=== PATIENT | male | born 1970 | race Caucasian/White ===

== ENCOUNTER 2018-09-22 01:15 | Emergency (ER) | payer MEDICARE, OTHER ==
[2018-09-22] MEDS ORDERED: ONDANSETRON 4 MG TAB.RAPDIS PO ONE (01:27)
[2018-09-22] MEDS ORDERED: NORMAL SALINE 1000 ML 1,000 ML IV ONE ×3 (01:28→06:36)
--- NOTE | 2018-09-22 01:31 | ER Document Report ---
Addendum entered and electronically signed by JOE ERVIN PA 09/22/18 02:51: Course - Re-evaluation Re-evalutation: 09/22/18 02:49 Patient was initially downgraded to a level 3 because his belly examination is benign, however patient is starting to get very bizarre, he is approaching people and telling them that he forgives them, he is talking about his conversation at home with the "voices in the house". Upgraded to level 2, patient will be placed in room. - Vital Signs Vital signs: Temp Pulse Resp BP Pulse Ox 98 F 109 H 26 H 123/80 98 09/22/18 01:18 09/22/18 01:18 09/22/18 01:18 09/22/18 01:18 09/22/18 01:18 Original Note: ED Medical Screen (RME) - General Chief Complaint: Abdominal Pain Stated Complaint: ABDOMINAL PAIN Time Seen by Provider: 09/22/18 01:26 Primary Care Provider: JUANIS,NO [Primary Care Provider] - Follow up as needed Notes: 48-year-old male with chief complaint of abdominal pain that is sharp and severe, started tonight, reports nausea. Denies flank pain. Has not vomited. Reports feeling like his abdomen is swollen. He states he had a hard bowel movement this morning, nonbloody. He denies any abdominal surgeries. Only for reported past medical history of COPD. TRAVEL OUTSIDE OF THE [place] IN LAST 30 DAYS: No Physical Exam - Vital signs Vitals: Temp Pulse Resp BP Pulse Ox 98 F 109 H 26 H 123/80 98 09/22/18 01:18 09/22/18 01:18 09/22/18 01:18 09/22/18 01:18 09/22/18 01:18 - Abdominal Tenderness: Other - There is mild distention, there is no guarding or rigidity, no specific areas of tenderness, mild generalized tenderness Course - Re-evaluation Re-evalutation: Patient is anxious but does not appear to be in distress on my evaluation. When I asked him to tell me where his abdomen hurts the worst, he states he is not sure, he states he needs to "think about". His abdomen does appear mildly distended although it is not rigid. I do not appreciate any areas of significant tenderness or guarding. 09/22/18 01:30 I noticed patient began to appear much more uncomfortable, CAT scan will be performed. - Vital Signs Vital signs: Temp Pulse Resp BP Pulse Ox 98 F 109 H 26 H 123/80 98 09/22/18 01:18 09/22/18 01:18 09/22/18 01:18 09/22/18 01:18 09/22/18 01:18 Doctor's Discharge - Discharge Referrals: LOCALMD,NO [Primary Care Provider] - Follow up as needed
[2018-09-22 03:19] LABS: ABSOLUTE BASOPHILS # (AUTO) 0.2 10^3/uL (0.0-0.2); ABSOLUTE EOSINOPHILS # (AUTO) 0.1 10^3/uL (0.0-0.6); ABSOLUTE LYMPHOCYTES (AUTO) 2.9 10^3/uL (0.5-4.7); ABSOLUTE MONOCYTES (AUTO) 1.3 10^3/uL (0.1-1.4); ABSOLUTE NEUT (AUTO) 11.2 10^3/uL (1.7-8.2); EOSINOPHILS % (AUTO) 0.9 % (0-6); HEMATOCRIT 47.6 % (37.9-51.0); LYMPHOCYTES % (AUTO) 18.5 % (13-45); MEAN CORPUSCULAR HEMOGLOBIN 30.1 pg (27.0-33.4); MEAN CORPUSCULAR HGB CONC 35.7 g/dL (32.0-36.0); MEAN CORPUSCULAR VOLUME 84 fl (80-97); MONOCYTES % (AUTO) 8.4 % (3-13); PLATELET COUNT 457 10^3/uL (150-450); RED BLOOD COUNT 5.66 10^6/uL (4.35-5.55); RED CELL DISTRIBUTION WIDTH 13.2 % (11.5-14.0); SEGMENTED NEUTROPHILS % (AUTO) 71.2 % (42-78); TOTAL CELLS COUNTED % (AUTO) 100 %; WHITE BLOOD COUNT 15.7 10^3/uL (4.0-10.5)
[2018-09-22 03:36] LABS: ALANINE AMINOTRANSFERASE 36 U/L (21-72); ALBUMIN 5.3 g/dL (3.5-5.0); ALKALINE PHOSPHATASE 167 U/L (38-126); ANION GAP 16 (5-19); ASPARTATE AMINO TRANSFERASE 41 U/L (17-59); BILIRUBIN,DIRECT 0.3 mg/dL (0.0-0.4); BILIRUBIN,TOTAL 1.1 mg/dL (0.2-1.3); BLOOD UREA NITROGEN 32 mg/dL (7-20); CALCIUM 10.8 mg/dL (8.4-10.2); CARBON DIOXIDE 19 mmol/L (22-30); CHLORIDE 95 mmol/L (98-107); GLUCOSE 173 mg/dL (75-110); LIPASE 220.3 U/L (23-300); POTASSIUM 5.2 mmol/L (3.6-5.0); SODIUM 129.5 mmol/L (137-145); TOTAL PROTEIN 9.6 g/dL (6.3-8.2)
[2018-09-22] MEDS ORDERED: DIPHENHYDRAMINE HCL 50 MG/ML VIAL IV ONE ×2 (04:05→09:18)
--- NOTE | 2018-09-22 04:39 | RADIOLOGY REPORT (SQ) ---
EXAM DESCRIPTION: CT ABDOMEN PELVIS WITH IV CONTRAST COMPLETED DATE/TME: 09/22/2018 01:27 CLINICAL HISTORY: 48 years Male, severe abd pain, abd swelling Comparison: None. Technique: IV contrast. Coronal and sagittal reformat. This exam was performed according to our departmental dose-optimization program, which includes automated exposure control, adjustment of the mA and/or kV according to patient size and/or use of iterative reconstruction technique. [facility]: Dose Right [facility]: CareDose [facility]: Dose Right [facility]: Teradose 4D [facility]: ScreenHits LIMITATIONS: Motion artifact. Findings: 3.3 cm diameter mild dilation of jejunal bowel with air-fluid levels. No ascites. No pneumoperitoneum. No bowel obstruction. Normal appendix. No gross evidence of gallbladder inflammation or hepatobiliary obstruction. No hydronephrosis or hydroureter. No renal/ureteral stone. No evidence of abdominal aortic aneurysm. Hepatic steatosis. Atherosclerotic vascular disease. Likely benign renal cyst(s), not definitively characterized. Inferior thorax, liver, gallbladder, pancreas, spleen, adrenals, renal system, gastrointestinal tract, pelvic organs, lymphatics, vasculature, and musculoskeleton appear otherwise unremarkable. IMPRESSION: 1. Jejunal ileus. 2. Hepatic steatosis.
[2018-09-22 05:49] LABS: APPEARANCE,URINE CLEAR; BILIRUBIN,URINE NEGATIVE (NEGATIVE); COLOR,URINE STRAW; GLUCOSE, URINE NEGATIVE (NEGATIVE); KETONES,URINE NEGATIVE (NEGATIVE); LEUKOCYTE ESTERASE,URINE NEGATIVE (NEGATIVE); NITRITE,URINE NEGATIVE (NEGATIVE); PROTEIN,URINE NEGATIVE (NEGATIVE); URINE SPECIFIC GRAVITY 1.026; UROBILINOGEN,URINE NEGATIVE mg/dL (<2.0)
[2018-09-22 06:04] LABS: URINE AMPHETAMINES SCREEN NEGATIVE; URINE BARBITURATES SCREEN NEGATIVE; URINE BENZODIAZEPINES SCREEN NEGATIVE; URINE COCAINE SCREEN NEGATIVE; URINE MARIJUANA (THC) SCREEN UNCONFIRMED POSITIVE; URINE METHADONE SCREEN NEGATIVE; URINE PHENCYCLIDINE SCREEN NEGATIVE
--- NOTE | 2018-09-22 06:49 | ER Document Report ---
Addendum entered and electronically signed by ROSLYN COFFMAN DO 09/22/18 15:21: Discharge - Discharge Clinical Impression: Dehydration, Marijuana abuse, continuous, Hypomania Abdominal pain Qualifiers: Abdominal location: generalized Qualified Code(s): R10.84 - Generalized abdominal pain Nausea & vomiting Qualifiers: Vomiting type: unspecified Vomiting Intractability: non-intractable Qualified Code(s): R11.2 - Nausea with vomiting, unspecified Leukocytosis Qualifiers: Leukocytosis type: unspecified Qualified Code(s): D72.829 - Elevated white blood cell count, unspecified Condition: Stable Disposition: HOME, SELF-CARE Instructions: Abdominal Pain ([facility]), Drug Effects ([facility]) Additional Instructions: We are starting you on some Haldol and Cogentin. This may help with your abdominal pain as well as some of your mental health symptoms. Follow-up appointment has been arranged. See the further instructions for outpatient follow-up. In the event that symptoms are getting worse over the next 24 hours then please return immediately for repeat evaluation. You have been evaluated by both medical and behavioral health providers while in the emergency department. you have been cleared from both acute medical sand psychiatric issues. Continued use of Cannabis may interfere with medication effectiveness as well as increase jose r/psychosis. You should take medications as prescribed and see an ongoing medication provider for maintenance. Bipolar Disorder Bipolar disorder is also called manic-depressive disorder. Depression alternates with brain hyperactivity called jose r. Each phase lasts from several days to a few weeks. We don't know exactly what causes bipolar disorder, but it's treatable. During the "manic phase," you may feel elated and energetic. You may have racing thoughts, rapid speech, increased activity, and grandiose ideas. During this time, you may not realize how poor your judgement is. Inappropriate spending, drug abuse, excessive alcohol use, marriage problems, and irresponsible sexual behavior are common during the manic phase. During the "depressive phase," you might feel depressed, guilty, worthless, fatigued, and unable to concentrate. You might have thoughts of suicide. Good treatments are available for bipolar disorder. [place] is a classic drug for bipolar disorder, and is still often useful. If the manic phase is very mild, an antidepressant alone can be prescribed. If the manic phase is very severe, an antipsychotic medicine (such as Haldol) may be needed. The treatment must be matched to your symptoms, so it's important to work closely with your psychiatric care provider. Contact your physician, the hospital emergency center, crisis line, or your counsellor if you are losing control or having self-destructive thoughts. Schizophrenia Schizophrenia is a chemical disorder that affects how the brain functions. The exact cause is unknown, but it tends to run in families. It is NOT caused by emotional trauma. Schizophrenia causes disordered thinking, including unusual beliefs and inability to "process" happenings around the patient. Patients with schizophrenia benefit greatly from medicine. These medicines are called antipsychotics. Never stop the medicine without the doctor's approval. Counselling may help the patient deal with his disease. Schizophrenics require a very ordered environment. Stresses and sudden changes may bring out symptoms. Drugs and alcohol abuse may become problems. Contact the counsellor or crisis line if there are thoughts of suicide or of harming others, or if you become aware of unusual thoughts or beliefs Typically when both Bipolar and Schizophrenia are diagnosed together it is known as Schizoaffective Disorder Bipolar Type or Bipolar with Psychotic Features. Follow up: You have an outpatient mental health follow up appointment at [facility] ([facility] [place]) on 09/28/18 at 0730. You have been provided scripts for medications (Haldol and Cogentin) to aid in mood stabilization and psychosis (common symptoms of Bipolar and Schizophrenia). If your symptoms persist or worsen please contact you physician utilize mobile crisis or return to the emergency department. Prescriptions: Benztropine Mesylate [Cogentin 1 mg Tablet] 1 mg PO DAILY 30 Days #30 tablet Haloperidol [Haldol 5 mg Tablet] 5 mg PO BID 30 Days #60 tablet Forms: Return to Work Referrals: [facility] [Provider Group] - 09/28/18 7:30 am [facility] [Outside] - Follow up as needed LOCALEMI LUCERO [NO LOCAL MD] - Follow up as needed Scribe Attestation: Addendum entered and electronically signed by ROSLYN COFFMAN DO 09/22/18 14:41: Course - Vital Signs Vital signs: Temp Pulse Resp BP Pulse Ox 98.4 F 109 H 24 H 130/85 H 94 09/22/18 08:09 09/22/18 01:18 09/22/18 13:00 09/22/18 13:00 09/22/18 13:00 - Laboratory Result Diagrams: 09/22/18 02:40 09/22/18 12:44 Laboratory results interpreted by me: 09/22/18 09/22/18 09/22/18 02:40 02:40 12:44 WBC 15.7 H RBC 5.66 H Plt Count 457 H Absolute Neutrophils 11.2 H Sodium 129.5 L 136.3 L Potassium 5.2 H 5.2 H Chloride 95 L Carbon Dioxide 19 L 21 L BUN 32 H 25 H Creatinine 1.37 H Est GFR (Non-Af Amer) 55 L Glucose 173 H 119 H Calcium 10.8 H Alkaline Phosphatase 167 H Total Protein 9.6 H Albumin 5.3 H - EKG Interpretation by Me EKG shows normal: Sinus rhythm, Picher, Intervals, QRS Complexes, ST-T Waves Original Note: Entered by BURKE ESCUDERO SCRIBE 09/22/18 0406 Acting as scribe for:DANII HELMS MD ED General - General Mode of Arrival: Ambulatory Information source: Patient TRAVEL OUTSIDE OF THE [place] IN LAST 30 DAYS: No <DANII HELMS - Last Filed: 09/22/18 06:52> <BEN MESSINA - Last Filed: 09/22/18 14:27> <ROSLYN COFFMAN - Last Filed: 09/22/18 14:40> - General Chief Complaint: Abdominal Pain Stated Complaint: ABDOMINAL PAIN Time Seen by Provider: 09/22/18 01:26 Primary Care Provider: [facility] [Provider Group] - 09/28/18 7:30 am [facility] [Outside] - Follow up as needed LOCAL,NO [NO LOCAL MD] - Follow up as needed Notes: Patient is a 48 year old male presents to the emergency department complaining of abdominal pain onset last night. Patient states he was laying in bed when he had a sudden onset of severe abdominal cramping. He states the pain freezes his body up and he further complains of nausea and dry heaving. (BURKE ESCUDERO) Patient is a 48 year old male presents to the emergency department complaining of abdominal pain onset last night. Patient states he was laying in bed when he had a sudden onset of severe abdominal cramping. He states the pain freezes his body up and he further complains of nausea and dry heaving. (DANII HELMS) - Related Data Allergies/Adverse Reactions: tramadol Allergy (Verified 09/22/18 08:33) Past Medical History - General Information source: Patient - Social History Smoking Status: Current Every Day Smoker Cigarette use (# per day): Yes - 1 PPD Chew tobacco use (# tins/day): No Smoking Education Provided: No Frequency of alcohol use: None Drug Abuse: Marijuana Family History: Reviewed & Not Pertinent <DANII HELMS - Last Filed: 09/22/18 06:52> Review of Systems - Review of Systems Constitutional: No symptoms reported EENT: No symptoms reported Cardiovascular: No symptoms reported Respiratory: No symptoms reported Gastrointestinal: See HPI, Abdominal pain Genitourinary: No symptoms reported Male Genitourinary: No symptoms reported Musculoskeletal: No symptoms reported <DANII HELMS - Last Filed: 09/22/18 06:52> Physical Exam <DANII HELMS - Last Filed: 09/22/18 06:52> - Vital signs Vitals: Temp Pulse Resp BP Pulse Ox 98 F 109 H 26 H 123/80 98 09/22/18 01:18 09/22/18 01:18 09/22/18 01:18 09/22/18 01:18 09/22/18 01:18 - Notes Notes: GENERAL: Alert, rapidly and frequently draws legs towards abdomen in a crunching position while grunting. Appears uncomfortable. HEAD: Normocephalic, atraumatic. EYES: Pupils equal, round, and reactive to light. Extraocular movements intact. ENT: Oral mucosa moist, tongue midline. NECK: Full range of motion. Supple. Trachea midline. LUNGS: Clear to auscultation bilaterally, no wheezes, rales, or rhonchi. No respiratory distress. HEART: Regular rate and rhythm. No murmurs, gallops, or rubs. ABDOMEN: Soft, non-tender. Non-distended.Bowel sounds present in all 4 quadrants. No guarding, rigidity, or rebound. EXTREMITIES: Moves all 4 extremities spontaneously. NEUROLOGICAL: Alert and oriented x3. Normal speech. PSYCH: Normal affect, normal mood. SKIN: Warm, dry, normal turgor. No rashes or lesions noted. (BURKE ESCUDERO) GENERAL: Alert, rapidly and frequently draws legs towards abdomen in a crunching position while grunting. Appears uncomfortable. HEAD: Normocephalic, atraumatic. EYES: Pupils equal, round, and reactive to light. Extraocular movements intact. ENT: Oral mucosa moist, tongue midline. NECK: Full range of motion. Supple. Trachea midline. LUNGS: Clear to auscultation bilaterally, no wheezes, rales, or rhonchi. No respiratory distress. HEART: Regular rate and rhythm. No murmurs, gallops, or rubs. ABDOMEN: Soft, non-tender. Non-distended.Bowel sounds present in all 4 quadrants. No guarding, rigidity, or rebound. EXTREMITIES: Moves all 4 extremities spontaneously. NEUROLOGICAL: Alert and oriented x3. Normal speech. PSYCH: Normal affect, normal mood. SKIN: Warm, dry, normal turgor. No rashes or lesions noted. (DANII HELMS) Course - Laboratory Result Diagrams: 09/22/18 02:40 09/22/18 02:40 - Diagnostic Test Radiology reviewed: Image reviewed, Reports reviewed - IV contrasted CT scan of the abdomen pelvis shows jejunal ileus without obstruction. - Transfer of Care Care transferred to following provider: Dr. Coffman <DANII HELMS - Last Filed: 09/22/18 06:52> - Laboratory Result Diagrams: 09/22/18 02:40 09/22/18 12:44 <BEN MESSINA - Last Filed: 09/22/18 14:27> - Laboratory Result Diagrams: 09/22/18 02:40 09/22/18 12:44 <ROSLYN COFFMAN - Last Filed: 09/22/18 14:40> - Re-evaluation Re-evalutation: 09/22/18 06:24 After the patient got the Benadryl IV, his symptoms subsided and he is now quite comfortable. His girlfriend did report to the nurse that she thinks she perhaps got a bad batch of marijuana. She states she smokes every day when he gets off work. (DANII HELMS) 09/22/18 12:18 I received patient at sign out from Dr. Finney. Patient has received multiple liters of fluid. I was asked to reevaluate patient after he received fluid. After patient had been resting for several hours with no complications nurses informed me that he was once again having spasms in his abdomen complaining of abdominal pain. At that time I made a decision to call medicine for admit. Medicine team wanted a surgical consult. I spoke with Dr. Sandoval who recommended I get a Gastrografin swallow. Patient has received that and the films appear to be fairly unremarkable. I have reconsulted medicine but they do not feel patient meets criteria for admission. Well prior to going to the radiology suite I medicated the patient with Benadryl and Haldol as well as some Cogentin. This seemed to alleviate patient's symptoms. I have repeated a basic metabolic profile just make sure that his labs are improving. We will continue to evaluate and follow. 09/22/18 13:27 Physical exam: Patient is alert, acute distress. HEENT: Pupils equal round react to light accommodation, extraocular muscles are intact, mucous membranes are moist. Heart: Regular rate and rhythm, no murmurs Lungs: lungs clear to auscultation bilaterally no wheezes or rhonchi Abdomen: Abdomen is soft, nontender, nondistended. When lightly touching on the abdomen patient makes a apparently voluntary jerk reaction to his abdomen. Patient was observed while sleeping and resting and had no abdominal symptoms. After waking patient up began to complain of abdominal symptoms again. Extremities: Equal strength upper lower extremities, no edema Neurology/psychiatry: Patient seems to have fairly clear train of thought. No active psychosis. No SI or HI. Laboratory 09/22/18 09/22/18 09/22/18 02:40 02:40 05:29 WBC 15.7 H RBC 5.66 H Hgb 17.0 Hct 47.6 MCV 84 MCH 30.1 MCHC 35.7 RDW 13.2 Plt Count 457 H Seg Neutrophils % 71.2 Lymphocytes % 18.5 Monocytes % 8.4 Eosinophils % 0.9 Basophils % 1.0 Absolute Neutrophils 11.2 H Absolute Lymphocytes 2.9 Absolute Monocytes 1.3 Absolute Eosinophils 0.1 Absolute Basophils 0.2 Sodium 129.5 L Potassium 5.2 H Chloride 95 L Carbon Dioxide 19 L Anion Gap 16 BUN 32 H Creatinine 1.37 H Est GFR ( Amer) > 60 Est GFR (Non-Af Amer) 55 L Glucose 173 H Calcium 10.8 H Total Bilirubin 1.1 Direct Bilirubin 0.3 Neonat Total Bilirubin Not Reportable Neonat Direct Bilirubin Not Reportable Neonat Indirect Bili Not Reportable AST 41 ALT 36 Alkaline Phosphatase 167 H Total Protein 9.6 H Albumin 5.3 H Lipase 220.3 Urine Color STRAW Urine Appearance CLEAR Urine pH 6.0 Ur Specific [place] 1.026 Urine Protein NEGATIVE Urine Glucose (UA) NEGATIVE Urine Ketones NEGATIVE Urine Blood NEGATIVE Urine Nitrite NEGATIVE Urine Bilirubin NEGATIVE Urine Urobilinogen NEGATIVE Ur Leukocyte Esterase NEGATIVE Urine WBC (Auto) 0 Urine Mucus (Auto) RARE Urine Ascorbic Acid NEGATIVE Urine Opiates Screen Urine Methadone Screen Ur Barbiturates Screen Ur Phencyclidine Scrn Ur Amphetamines Screen U Benzodiazepines Scrn Urine Cocaine Screen U Marijuana (THC) Screen 09/22/18 09/22/18 05:29 12:44 WBC RBC Hgb Hct MCV MCH MCHC RDW Plt Count Seg Neutrophils % Lymphocytes % Monocytes % Eosinophils % Basophils % Absolute Neutrophils Absolute Lymphocytes Absolute Monocytes Absolute Eosinophils Absolute Basophils Sodium 136.3 L Potassium 5.2 H Chloride 106 Carbon Dioxide 21 L Anion Gap 9 BUN 25 H Creatinine 1.17 Est GFR ( Amer) > 60 Est GFR (Non-Af Amer) > 60 Glucose 119 H Calcium 9.9 Total Bilirubin Direct Bilirubin Neonat Total Bilirubin Neonat Direct Bilirubin Neonat Indirect Bili AST ALT Alkaline Phosphatase Total Protein Albumin Lipase Urine Color Urine Appearance Urine pH Ur Specific [place] Urine Protein Urine Glucose (UA) Urine Ketones Urine Blood Urine Nitrite Urine Bilirubin Urine Urobilinogen Ur Leukocyte Esterase Urine WBC (Auto) Urine Mucus (Auto) Urine Ascorbic Acid Urine Opiates Screen NEGATIVE Urine Methadone Screen NEGATIVE Ur Barbiturates Screen NEGATIVE Ur Phencyclidine Scrn NEGATIVE Ur Amphetamines Screen NEGATIVE U Benzodiazepines Scrn NEGATIVE Urine Cocaine Screen NEGATIVE U Marijuana (THC) Screen UNCONFIRMED POSITIVE Abdomen/Pelvis CT 09/22/18 01:27 IMPRESSION: 1. Jejunal ileus. 2. Hepatic steatosis. Small Bowel X-Ray 09/22/18 09:27 IMPRESSION: No evidence of small bowel obstruction. Contrast reached the colon within 1 hour. Assessment/plan: Mental health has seen. They are recommending some Haldol and Cogentin at this time. I think that is a good idea as it did also help with some of his abdominal symptoms however his abdominal symptoms may be more mental health in origin. The upper GI series appears unremarkable. Family members are here. Patient's brother reports that he has had schizoaffective disorder with manic episodes in the past. At this time based on the reported abnormal presentation in the ER and his abnormal involuntary type exam as well as the fact that his symptoms improved greatly with an antipsychotic medication I am recommending that patient be evaluated by mental health. I have ordered a repeat chemistry after he is received his fluids. This is pending at this time. Mental health evaluation pending at this time. I think that if patient's mental health evaluation is unremarkable he can likely be able to be discharged. Of note, the repeat chemistry was performed. Creatinine has improved and sodium is come up. Potassium is still 5.2. Ordering EKG at this time. 09/22/18 13:34 09/22/18 13:40 09/22/18 14:16 (ROSLYN COFFMAN) - Vital Signs Vital signs: Temp Pulse Resp BP Pulse Ox 98.4 F 109 H 24 H 130/85 H 94 09/22/18 08:09 09/22/18 01:18 09/22/18 13:00 09/22/18 13:00 09/22/18 13:00 - Laboratory Laboratory results interpreted by me: 09/22/18 09/22/18 09/22/18 02:40 02:40 12:44 WBC 15.7 H RBC 5.66 H Plt Count 457 H Absolute Neutrophils 11.2 H Sodium 129.5 L 136.3 L Potassium 5.2 H 5.2 H Chloride 95 L Carbon Dioxide 19 L 21 L BUN 32 H 25 H Creatinine 1.37 H Est GFR (Non-Af Amer) 55 L Glucose 173 H 119 H Calcium 10.8 H Alkaline Phosphatase 167 H Total Protein 9.6 H Albumin 5.3 H - Transfer of Care Notes: 09/22/18 06:35 Patient to receive a 3rd L of normal saline. If he is able to tolerate small sips of cool clear liquids, then he can probably go home. (DANII HELMS) Discharge <DANII HELMS - Last Filed: 09/22/18 06:52> <BEN MESSINA - Last Filed: 09/22/18 14:27> <ROSLYN COFFMAN - Last Filed: 09/22/18 14:40> - Discharge Clinical Impression: Dehydration, Marijuana abuse, continuous, Hypomania Abdominal pain Qualifiers: Abdominal location: generalized Qualified Code(s): R10.84 - Generalized abdominal pain Nausea & vomiting Qualifiers: Vomiting type: unspecified Vomiting Intractability: non-intractable Qualified Code(s): R11.2 - Nausea with vomiting, unspecified Leukocytosis Qualifiers: Leukocytosis type: unspecified Qualified Code(s): D72.829 - Elevated white blood cell count, unspecified Condition: Stable Disposition: HOME, SELF-CARE Instructions: Abdominal Pain ([facility]), Drug Effects ([facility]) Additional Instructions: We are starting you on some Haldol and Cogentin. This may help with your abdominal pain as well as some of your mental health symptoms. Follow-up appoi ntment has been arranged. See the further instructions for outpatient follow- up. In the event that symptoms are getting worse over the next 24 hours then please return immediately for repeat evaluation. You have been evaluated by both medical and behavioral health providers while in the emergency department. you have been cleared from both acute medical sand psychiatric issues. Continued use of Cannabis may interfere with medication effectiveness as well as increase jose r/psychosis. You should take medications as prescribed and see an ongoing medication provider for maintenance. Bipolar Disorder Bipolar disorder is also called manic-depressive disorder. Depression alternates with brain hyperactivity called jose r. Each phase lasts from several days to a few weeks. We don't know exactly what causes bipolar disorder, but it's treatable. During the "manic phase," you may feel elated and energetic. You may have racing thoughts, rapid speech, increased activity, and grandiose ideas. During this time, you may not realize how poor your judgement is. Inappropriate spending, drug abuse, excessive alcohol use, marriage problems, and irresponsible sexual behavior are common during the manic phase. During the "depressive phase," you might feel depressed, guilty, worthless, fatigued, and unable to concentrate. You might have thoughts of suicide. Good treatments are available for bipolar disorder. [place] is a classic drug for bipolar disorder, and is still often useful. If the manic phase is very mild, an antidepressant alone can be prescribed. If the manic phase is very severe, an antipsychotic medicine (such as Haldol) may be needed. The treatment must be matched to your symptoms, so it's important to work closely with your psychiatric care provider. Contact your physician, the hospital emergency center, crisis line, or your counsellor if you are losing control or having self-destructive thoughts. Schizophrenia Schizophrenia is a chemical disorder that affects how the brain functions. The exact cause is unknown, but it tends to run in families. It is NOT caused by emotional trauma. Schizophrenia causes disordered thinking, including unusual beliefs and inability to "process" happenings around the patient. Patients with schizophrenia benefit greatly from medicine. These medicines are called antipsychotics. Never stop the medicine without the doctor's approval. Counselling may help the patient deal with his disease. Schizophrenics require a very ordered environment. Stresses and sudden changes may bring out symptoms. Drugs and alcohol abuse may become problems. Contact the counsellor or crisis line if there are thoughts of suicide or of harming others, or if you become aware of unusual thoughts or beliefs Typically when both Bipolar and Schizophrenia are diagnosed together it is known as Schizoaffective Disorder Bipolar Type or Bipolar with Psychotic Features. Follow up: You have an outpatient mental health follow up appointment at [facility] ([facility] [place]) on 09/28/18 at 0730. You have been provided scripts for medications (Haldol and Cogentin) to aid in mood stabilization and psychosis (common symptoms of Bipolar and Schizophrenia). If your symptoms persist or worsen please contact you physician utilize mobile crisis or return to the emergency department. Prescriptions: Benztropine Mesylate [Cogentin 1 mg Tablet] 1 mg PO DAILY 30 Days #30 tablet Haloperidol [Haldol 5 mg Tablet] 5 mg PO BID 30 Days #60 tablet Referrals: JUANIS,NO [NO LOCAL MD] - Follow up as needed [facility] [Outside] - Follow up as needed [facility] [Provider Group] - 09/28/18 7:30 am Scribe Attestation: 09/22/18 04:19 I personally performed the services described in the documentation, reviewed and edited the documentation which was dictated to the scribe in my presence, and it accurately records my words and actions. (DANII HELMS) I personally performed the services described in the documentation, reviewed and edited the documentation which was dictated to the scribe in my presence, and it accurately records my words and actions.
[2018-09-22] MEDS ORDERED: BENZTROPINE MESYLATE 1 MG TABLET PO ONE (09:18)
[2018-09-22] MEDS ORDERED: HALOPERIDOL LACTATE INJ 5 MG/1 ML VIAL IV ONE (09:18)
[2018-09-22 13:25] LABS: ANION GAP 9 (5-19); BLOOD UREA NITROGEN 25 mg/dL (7-20); CALCIUM 9.9 mg/dL (8.4-10.2); CARBON DIOXIDE 21 mmol/L (22-30); CHLORIDE 106 mmol/L (98-107); GLUCOSE 119 mg/dL (75-110); POTASSIUM 5.2 mmol/L (3.6-5.0); SODIUM 136.3 mmol/L (137-145)
--- NOTE | 2018-09-22 13:29 | RADIOLOGY REPORT (SQ) ---
EXAM DESCRIPTION: SMALL BOWEL SERIES COMPLETED DATE/TIME: 09/22/2018 12:42 pm REASON FOR STUDY: ? SBo USE GASTROGRAFIN COMPARISON: None. FLUOROSCOPY TIME: 0 12 images saved to PACS. LIMITATIONS: None. PROCEDURE: Initial interventional physiatrist image of abdomen acquired, followed by administration of oral contrast. Se rial radiographic images acquired. Fluoroscopic images recorded of the terminal ileum and other ayse cated areas. All images stored on PACS. FINDINGS: DRY ICE MAKER KUB: There are few mildly dilated loops of small bowel in the central abdomen measur ing up to 4 cm. Gas noted throughout the colon. No radiopaque calcifications overlie kidneys or exp ected course of ureters. Unremarkable bones. STOMACH: No significant reflux. Normal distention without abnormality. DUODENUM: Normal mucosal pattern with adequate distention. No displacement or obstruction. JEJUNUM: Normal mucosal pattern. No dilatation, segmentation, strictures or masses. ILEUM: Normal mucosal pattern. No dilatation, segmentation, strictures or masses. TERMINAL ILEUM AND ILEO-CECAL VALVE: Normal mucosal pattern without "cobble-stoning" or stricture. PROXIMAL COLON: Contrast reached the colon prior to 1 hour. Incompletely imaged. No abnormality. OTHER: No other significant finding. IMPRESSION: No evidence of small bowel obstruction. Contrast reached the colon within 1 hour. COMMENT: Quality ID [id number]: Final reports for procedures using fluoroscopy that document radiation exp osure indices, or exposure time and number of fluorographic images (if radiation exposure indices are not available) TECHNICAL DOCUMENTATION: JOB ID: [id number] [employer]- All Rights Reserved Reading location - IP/workstation name: [email or web address]
--- NOTE | 2018-09-22 14:11 | PSYCHOLOGICAL NOTE ---
Psych Note - Psych Note Date seen by psych provider: 09/22/18 Time seen by psych provider: 13:30 - Evaluation from [id number]. 2 followups after initial probably 5 minutes each. Psych Note: Reason for Consult: [place] (lots of energy, pressured speech), Hx MH, not on medications Contact Permissions: Brother Clarence and Mother at bedside Patient is a 48 year old male who presented to the ED today for medical compliant of abdominal pain and was dehydrated. A psychiatric consult was ordered due to manic presentation and report from family/coworkers with history of MH and not currently on medications. Attending ED Physician noted administration of Haldol 5MG, Cogentin 2MG and Benadryl 50MG stopped the pressured speech. Patient acknowledged he "was diagnosed with Bipolar and Schizophrenia, he used to me on medications but it has been a long time, over 10 years." He noted he had been prescribed Risperdal, commented "I didn't like it because it could make you grow breasts, it did not happen to me and I did not have any bad feeling from it" and said "others as well but I don't remember what they were." He admitted to previous MH hospitalizations and said "a long time ago." He stated "I was on disability for 5 years but then the [facility] decided I didn't need it anymore." He denied being involved with the [facility] until recently when he scheduled an appointment (12/03/18) due to needing hip and shoulder checked out. He stated Dr. Kennedy at the physician's office next to [facility] is his PCM. He denied SI/HI. He denied alcohol and drug use. UDS was positive for Cannabis. he admitted to a family history of MH. Patient was alert and oriented to self, person, place, time and situation. Mood was euthymic with congruent affect. He presented hypomanic but cooperative and able to interact appropriately. He denied SI/HI. He did not appear to be responding to internal stimuli as evidenced by fair eye contact, answering questions appropriately when addressed, staying on topic and carrying on dialogue conversation. Thought processes were linear. Conversational speech was quick in rate and within normal limits for tone and prosody. Intellectual abilities are estimated to be average. Insight, judgment and impulse control were fair as evidenced by providing history of MH and being honest about history of treatment. Patient's brother reported his mother spoke to patient girlfriend who said patient "was out there, not making sense and talking weird." He stated the [place] patient works with daily went to their boss the other day saying "patient was talking to himself, talking out there and not acting/talking right." He stated "it was like he was when he first got her and medical staff said he was talking often, fast and to himself." He also confirmed a family history of MH. Mother stated patient has a brother who was on Haldol and committed suicide. Brother noted brother had also been using other substances such as LSD and multiple other things. Diagnosis: 295.70 (F25.0) Schizoaffective Disorder, Bipolar Type by History per patient 292.9 (F12.99) Unspecified Cannabis Related Disorder Medication recommendations made by the psychiatric medical provider, Dr. Starr MD., includes: Add Haldol 5MG twice a day for psychosis/mood stabilization Add Cogentin 1MG daily to curb tremor side effects often associated with antipsychotic medications Impression/Plan: Patient is cleared from acute psychiatric services. He denied SI/HI and no observed psychosis that seemed to interfere with ability to interact with others or express needs/wants. He admitted to a Bipolar and Schizophrenia history, being on Risperdal in the past, not being on any medications for 10 years, was on Disability for [place] for 5 years then [facility] stopped it and has been hospitalized for MH in the past. Outpatient follow up scheduled with the [facility] on 09/28/18 at 0730. Patient and family provided with outpatient resource sheet which documented appointment date and time, as well as highlighted [facility] for crisis/talk therapy/linkage to other supports/services. Patient and mother educated on how [facility] works (patient for talk therapy via telephone, mother for concerns regarding behaviors and presentation). Bother and mother included in plan of care. Consulted with Dr. Jean regarding the management and care of patient. ED Physician in agreement with recommendations.
[2018-09-22 15:31] VITALS: BP 136/80
--- NOTE | 2018-09-23 11:08 | EKG REPORT ---
SEVERITY:- BORDERLINE ECG - SINUS RHYTHM BORDERLINE T ABNORMALITIES, INFERIOR LEADS : Confirmed by: Cony Araujo 23-Sep-2018 11:07:37
== END 2018-09-22 15:31 | disposition home or self-care (01) ==
LOC: ER 01:15
DX: K56.7 Ileus, unspecified (principal); K76.0 Fatty (change of) liver, not elsewhere classified; R10.84 Generalized abdominal pain; R11.2 Nausea with vomiting, unspecified; E86.0 Dehydration; F25.0 Schizoaffective disorder, bipolar type; F12.10 Cannabis abuse, uncomplicated; D72.829 Elevated white blood cell count, unspecified; F17.210 Nicotine dependence, cigarettes, uncomplicated
CPT/HCPCS: 93005; 96376; 99285; 96361; 96374; 96375; 36415; 83690; 85025; 80048; 80053; 81001; 80307; 74250; 74177; 93010; J1200; J1630; J7030

== ENCOUNTER → 2018-10-27 | Outpatient (CLI) | payer OTHER ==
[2018-10-31 19:08] LABS: HELICOBACTER PYLORI IGA AB <9.0 units (0.0-8.9); HELICOBACTER PYLORI IGG AB <0.80 (0.00-0.79); HELICOBACTER PYLORI IGM AB <9.0 units (0.0-8.9)
== END ==
LOC: OD 09:39
PROVIDERS: ATTEND Surgery
DX: R10.9 Unspecified abdominal pain (principal)
CPT/HCPCS: 36415; 86677

== ENCOUNTER 2020-05-23 09:53 | Emergency (ER) | payer OTHER ==
--- NOTE | 2020-05-23 10:12 | ER Document Report ---
ED Medical Screen (RME) - General Chief Complaint: Chest Pain Stated Complaint: CHEST PAIN Time Seen by Provider: 05/23/20 10:07 Primary Care Provider: CHARLES JENKINS MD [Primary Care Provider] - Follow up as needed Mode of Arrival: Ambulatory Information source: Patient Notes: 49-year-old male presented to ED for complaint of chest pain last night. He states his daughter wrote a letter to the [place] doctor last night and they called him this morning told him to come right to the ER. He was having some pain in his left upper chest. He does have a history of high blood pressure high cholesterol and COPD. He states he does smoke a pack a day does not drink or do drugs. He is alert and oriented. He states he does not have any pain at this time. He states he always has shortness of breath due to COPD. After performing a Medical Screening Examination, I spoke with the patient at length in regards to leaving the hospital against medical advice. I do not believe the patient should leave but the patient is alert oriented x4, understands the risks and benefits of staying and leaving including disability and . Pt understands that he can return at any time for further care and is more than welcome to do so. Pt verbalizes this understanding. TRAVEL OUTSIDE OF THE [place] IN LAST 30 DAYS: No - Related Data Allergies/Adverse Reactions: tramadol Allergy (Verified 09/22/18 08:33) Past Medical History - Past Medical History Cardiac Medical History: Reports: Hx Hypercholesterolemia, Hx Hypertension Pulmonary Medical History: Reports: Hx Asthma, Hx COPD Renal/ Medical History: Denies: Hx Peritoneal Dialysis Physical Exam - Vital signs Vitals: Temp Pulse Resp BP Pulse Ox 98.5 F 77 18 128/81 H 97 05/23/20 10:06 05/23/20 10:06 05/23/20 10:06 05/23/20 10:06 05/23/20 10:06 Course - Vital Signs Vital signs: Temp Pulse Resp BP Pulse Ox 98.5 F 77 18 128/81 H 97 05/23/20 10:06 05/23/20 10:06 05/23/20 10:06 05/23/20 10:06 05/23/20 10:06 Doctor's Discharge - Discharge Referrals: CHARLES JENKINS MD [Primary Care Provider] - Follow up as needed
[2020-05-23 10:46] LABS: ABSOLUTE BASOPHILS # (AUTO) 0.1 10^3/uL (0.0-0.2); ABSOLUTE EOSINOPHILS # (AUTO) 0.1 10^3/uL (0.0-0.6); ABSOLUTE MONOCYTES (AUTO) 0.5 10^3/uL (0.1-1.4); ABSOLUTE NEUT (AUTO) 7.1 10^3/uL (1.7-8.2); BASOPHILS % (AUTO) 0.8 % (0-2); EOSINOPHILS % (AUTO) 0.9 % (0-6); HEMATOCRIT 46.2 % (37.9-51.0); HEMOGLOBIN 15.9 g/dL (13.5-17.0); LYMPHOCYTES % (AUTO) 27.9 % (13-45); MEAN CORPUSCULAR HEMOGLOBIN 30.2 pg (27.0-33.4); MEAN CORPUSCULAR HGB CONC 34.4 g/dL (32.0-36.0); MEAN CORPUSCULAR VOLUME 88 fl (80-97); PLATELET COUNT 330 10^3/uL (150-450); RED BLOOD COUNT 5.26 10^6/uL (4.35-5.55); RED CELL DISTRIBUTION WIDTH 13.3 % (11.5-14.0); SEGMENTED NEUTROPHILS % (AUTO) 65.4 % (42-78); TOTAL CELLS COUNTED % (AUTO) 100 %; WHITE BLOOD COUNT 10.9 10^3/uL (4.0-10.5)
[2020-05-23 10:52] LABS: INTERNATIONAL RATION (INR) 0.89; PROTHROMBIN TIME 12.3 SEC (11.4-15.4)
--- NOTE | 2020-05-23 11:04 | ER Document Report ---
ED General - General Chief Complaint: Chest Pain Stated Complaint: CHEST PAIN Time Seen by Provider: 05/23/20 10:07 Primary Care Provider: EAGLE VERDUGO MD [ACTIVE PROVISIONAL STAFF] - Follow up as needed CHARLES JENKINS MD [ACTIVE STAFF] - Follow up tomorrow Mode of Arrival: Ambulatory TRAVEL OUTSIDE OF THE [place] IN LAST 30 DAYS: No - HPI Notes: Patient is a 49-year-old male with a history of COPD who presents with intermittent chest pain for the past month. Patient describes that pain as a squeezing in his left chest that comes on at rest and lasts a couple of hours. Patient states recently the frequency of his chest pain has increased and he now reports episodes of chest pain daily. He states he is normally SOB due to his COPD but denies any new shortness of breath. He reports one episode of vomiting and diarrhea this morning but denies abdominal pain, headache, fever, and dizziness. He is a current everyday smoker and smokes 1ppd. He denies alcohol use. He reports hx of HLD and pre-diabetes which he takes metformin for but denies hx of HTN. - Related Data Allergies/Adverse Reactions: tramadol Allergy (Verified 09/22/18 08:33) Home Medications: metformin Past Medical History - General Information source: Patient - Social History Smoking Status: Current Every Day Smoker Frequency of alcohol use: None Family History: Reviewed & Not Pertinent Patient has homicidal ideation: No - Past Medical History Cardiac Medical History: Reports: Hx Hypercholesterolemia, Hx Hypertension Pulmonary Medical History: Reports: Hx Asthma, Hx COPD Renal/ Medical History: Denies: Hx Peritoneal Dialysis Review of Systems - Review of Systems Constitutional: No symptoms reported EENT: No symptoms reported Cardiovascular: See HPI Respiratory: No symptoms reported Gastrointestinal: See HPI Genitourinary: No symptoms reported Male Genitourinary: No symptoms reported Musculoskeletal: No symptoms reported Skin: No symptoms reported Hematologic/Lymphatic: No symptoms reported Neurological/Psychological: No symptoms reported Physical Exam - Vital signs Vitals: Temp Pulse Resp BP Pulse Ox 98.5 F 77 18 128/81 H 97 05/23/20 10:06 05/23/20 10:06 05/23/20 10:06 05/23/20 10:06 05/23/20 10:06 - Notes Notes: PHYSICAL EXAMINATION: VITALS: Vitals reviewed and within normal limits. GENERAL: Well-appearing, well-nourished and in no acute distress. HEAD: Atraumatic, normocephalic. EYES: Pupils equal, round, and reactive to light, extraocular movements intact, sclera anicteric, conjunctiva are normal. ENT: Nares patent. Moist mucous membranes. Oropharynx clear without exudates. NECK: Normal range of motion, supple without lymphadenopathy. LUNGS: Breath sounds clear to auscultation bilaterally and equal. No wheezes, rales, or rhonchi. HEART: Regular, rate, and rhythm without murmurs. ABDOMEN: Soft, nontender, normoactive bowel sounds. No guarding, no rebound. No masses appreciated. EXTREMITIES: Normal range of motion, no pitting or edema. No cyanosis. NEUROLOGICAL: No focal neurological deficits. Moves all extremities s pontaneously and on command. PSYCH: Normal mood, normal affect. SKIN: Warm, Dry, normal turgor, no rashes or lesions noted. Course - Re-evaluation Re-evalutation: Presentation of chest pain in an otherwise well appearing patient. Low clinical suspicion for ACS given clinical history, exam, EKG without ST elevations or depressions, and negative initial troponin. HEART score less than or equal to 3. PE also seems unlikely given clinical history, absence of tachycardia or dyspnea. Patient is PERC criteria negative. CXR without evidence of pneumothorax or pneumonia. No widened mediastinum. Aortic dissection also seems unlikely given history, symmetric pulses, CXR, and vitals. HEART Score: 3 (based on age and risk factors) Chest pain in a patient without evidence of cardiac or other serious etiology on workup today. I discussed with patient that, based on their age, risk factors and emergency department testing today, the likelihood that their symptoms are related to a heart attack is very low (estimated risk of heart attack or over the next 30 days of less than 1.7%). The patient demonstrates decision ma nargis capacity and has verbalized an understanding of these risks to me. Based on this, the patient has chosen to follow-up as an outpatient. Usual chest pain return precautions reviewed. The patient states understanding and agreement with this plan. - Vital Signs Vital signs: Temp Pulse Resp BP Pulse Ox 98.4 F 74 16 126/78 H 97 05/23/20 12:53 05/23/20 12:53 05/23/20 12:53 05/23/20 12:53 05/23/20 12:53 - Laboratory Results Result Diagrams: 05/23/20 10:15 05/23/20 10:15 Laboratory Results Interpreted: 05/23/20 05/23/20 10:15 10:15 WBC 10.9 H Sodium 136.5 L BUN 21 H Glucose 137 H Alkaline Phosphatase 135 H Critical Laboratory Results Reviewed: No Critical Results - Radiology Results Critical Radiology Results Reviewed: No Critical Results - EKG Interpretation by Me Additional EKG results interpreted by me: Sinus rhythm with a rate of 78. QTc 420. Normal axis. No T wave inversions or ST segment changes in consecutive leads. Discharge - Discharge Clinical Impression: Chest pain Qualifiers: Chest pain type: unspecified Qualified Code(s): R07.9 - Chest pain, unspecified Condition: Stable Disposition: HOME, SELF-CARE Additional Instructions: You were seen today for chest pain. The exact cause of your pain is unclear. However, based on your cardiac enzyme testing, chest x-ray, and EKG it does not appear that it is from an immediately life-threatening cause at this time. Although your testing here is normal is critical that you follow-up with your primary care physician for continued evaluation of this chest pain and possible stress testing. I recommended you see your physician within the next 24-48 hours to be evaluated for consideration of a stress test. Please return to emergency department immediately if you have worsening of your chest pain, shortness of breath, vomiting, become unable to exert yourself due to pain or difficulty breathing, you pass out, or have any pain that radiates into your arm s, jaw, or back. Please also return if you have any additional symptoms that are concerning to you. Referrals: EAGLE VERDUGO MD [ACTIVE PROVISIONAL STAFF] - Follow up as needed CHARLES JENKINS MD [ACTIVE STAFF] - Follow up tomorrow
--- NOTE | 2020-05-23 11:17 | RADIOLOGY REPORT (SQ) ---
EXAM DESCRIPTION: CHEST 2 VIEWS IMAGES COMPLETED DATE/TIME: 05/23/2020 10:58 am REASON FOR STUDY: chest pain COMPARISON: 07/07/2008. EXAM PARAMETERS: NUMBER OF VIEWS: two views TECHNIQUE: Digital Frontal and Lateral radiographic views of the chest acquired. RADIATION DOSE: NA LIMITATIONS: none FINDINGS: LUNGS AND PLEURA: No opacities, masses or pneumothorax. No pleural effusion. MEDIASTINUM AND HILAR STRUCTURES: No masses or contour abnormalities. HEART AND VASCULAR STRUCTURES: Heart normal size. No evidence for failure. BONES: No acute findings. HARDWARE: None in the chest. OTHER: No other significant finding. IMPRESSION: NO ACUTE RADIOGRAPHIC FINDING IN THE CHEST. TECHNICAL DOCUMENTATION: JOB ID: [id number] 2010 [employer]- All Rights Reserved Reading location - IP/workstation name: [email or web address]
[2020-05-23 11:46] LABS: ALBUMIN 4.6 g/dL (3.5-5.0); ALKALINE PHOSPHATASE 135 U/L (38-126); ANION GAP 10 (5-19); ASPARTATE AMINO TRANSFERASE 24 U/L (17-59); BILIRUBIN,DIRECT 0.1 mg/dL (0.0-0.4); BILIRUBIN,TOTAL 0.4 mg/dL (0.2-1.3); BLOOD UREA NITROGEN 21 mg/dL (7-20); CALCIUM 10.1 mg/dL (8.4-10.2); CARBON DIOXIDE 23 mmol/L (22-30); CHLORIDE 104 mmol/L (98-107); GLUCOSE 137 mg/dL (75-110); POTASSIUM 4.6 mmol/L (3.6-5.0)
[2020-05-23 12:54] VITALS: BP 126/78
--- NOTE | 2020-05-23 19:06 | EKG REPORT ---
SEVERITY:- NORMAL ECG - SINUS RHYTHM : Confirmed by: Cony Araujo 23-May-2020 19:06:37
== END 2020-05-23 12:54 | disposition home or self-care (01) ==
LOC: ER 09:53
DX: R07.9 Chest pain, unspecified (principal); R06.02 Shortness of breath; R11.10 Vomiting, unspecified; R19.7 Diarrhea, unspecified; J44.9 Chronic obstructive pulmonary disease, unspecified; F17.210 Nicotine dependence, cigarettes, uncomplicated; E78.5 Hyperlipidemia, unspecified; R73.03 Prediabetes; Z79.84 Long term (current) use of oral hypoglycemic drugs
CPT/HCPCS: 36415; 71046; 80053; 83735; 84484; 85025; 85610; 93005; 93010; 99285